=== PATIENT | female | born 1965 | race Caucasian/White ===

== ENCOUNTER → 2018-03-30 | Outpatient (CLI) | payer OTHER | END | disposition home or self-care (01) | LOC: RAH 14:46 | PROVIDERS: ATTEND Family Medicine | DX: Z13.6 Encounter for screening for cardiovascular disorders (principal) | CPT/HCPCS: 75571 ==

== ENCOUNTER → 2024-04-22 | Outpatient (CLI) | payer OTHER ==
[~2024-04-22] MED LIST: ACET325T51 PO; AMLO-257 PO; ASPI-1005 PO; ESTR1PAT73 TD; LOSA100T59 PO; OMEG-148 PO; PANT40TA55 PO; [UNRECOGNIZED DRUG - CODE] PO
[2024-04-22 22:22] VITALS: PULSE 64; RESP 18
[2024-04-22 23:00] VITALS: PULSE 58; RESP 16
[2024-04-22 23:30] VITALS: PULSE 56; RESP 16
[2024-04-23] VITALS (11 sets, daily range): PULSE 54–64; RESP 16–18
== END | disposition home or self-care (01) ==
LOC: SLP 20:25
PROVIDERS: ATTEND Internal Medicine Critical Care Medicine
DX: R06.83 Snoring (principal); G47.33 Obstructive sleep apnea (adult) (pediatric)
CPT/HCPCS: 95810